=== PATIENT | female | born 1965 | race Caucasian/White ===

== ENCOUNTER 2017-03-31 00:07 | Emergency (ER) | payer MEDICAID ==
[~2017-03-31] VITALS: Ht 170.2 cm; Wt 68.0 kg
[2017-03-31 00:15] VITALS: BP 113/74
[2017-03-31] MEDS ORDERED: LEVOTHYROXINE25 MCG ORAL (00:15)
[2017-03-31] MEDS ORDERED: AUGMENTIN 875-1 EAC1 ORAL (02:57)
[2017-03-31] MEDS ORDERED: IBUPROFEN600 MG ORAL (02:57)
--- NOTE | 2017-03-31 02:58 | Emergency Room Report ---
History of Present Illness General Chief Complaint: Fever Source: Patient Present Illness HPI Is a 52-year-old female with no significant past medical history. She presents with chief complaint of sore throat and fever. Onset tonight. Pain is 10 out of 10. Worse with swallowing. No nausea no vomiting. No diarrhea. Has not anything for this. Denies any other complaint. No drooling. Allergies: Coded Allergies: No Known Allergies (Unverified , 03/31/17) Patient History Past Medical History: see triage record, old chart reviewed Past Surgical History: other Pertinent Family History: none Social History: Denies: drug use Now: No : 1 Para: 1 Immunizations: other Reviewed Nursing Documentation: PMH: Agreed, PSxH: Agreed Nursing Documentation-PMH Past Medical History: No Stated History Review of Systems Constitutional: Reports: fever Eye: Denies: eye pain, blurred vision ENT: Reports: throat pain, Denies: ear pain, nose congestion, throat swelling Respiratory: Denies: cough, shortness of breath Cardiovascular: Denies: chest pain, palpitations Gastrointestinal: Denies: abdominal pain, diarrhea, nausea, vomiting Musculoskeletal: Denies: back pain, joint pain Skin: Denies: rash Neurological: Denies: headache, numbness Endocrine: Denies: increased thirst, increased urine Hematologic/Lymphatic: Denies: easy bruising All Other Systems: negative except mentioned in HPI Physical Exam Vital Signs Date Time Temp Pulse Resp B/P (MAP) Pulse Ox O2 Delivery O2 Flow Rate FiO2 03/31/17 00:12 101.5 93 14 113/74 96 Room Air vitals with fever Sp02 EP Interpretation: reviewed, normal General Appearance: well appearing, no apparent distress, alert Head: normocephalic, atraumatic Eyes: bilateral eye PERRL, bilateral eye EOMI ENT: hearing grossly normal, tonsillar swelling, pharyngeal erythema, tonsillar exudate Neck: full range of motion, supple, no meningismus Respiratory: chest non-tender, lungs clear, normal breath sounds Cardiovascular #1: regular rate, rhythm, no murmur Gastrointestinal: normal bowel sounds, non tender, no mass, no organomegaly, no bruit, non-distended Musculoskeletal: back normal, gait/station normal, normal range of motion Psychiatric: mood/affect normal Skin: warm/dry Medical Decision Making Diagnostic Impression: Primary Impression: Acute tonsillitis Qualified Codes: J03.90 - Acute tonsillitis, unspecified ER Course Patient with fever and accident tonsillitis. Worrisome for strep. No evidence of sepsis, pneumonia, peritonsillar abscess, retropharyngeal abscess or Misael angina. He felt better now. We'll discharge him. Last Vital Signs Date Time Temp Pulse Resp B/P (MAP) Pulse Ox O2 Delivery O2 Flow Rate FiO2 03/31/17 00:15 101.5 85 14 113/74 96 Room Air Status: improved Disposition: HOME, SELF-CARE Condition: Stable Scripts Ibuprofen* (MOTRIN*) 600 Mg Tablet 600 MG ORAL Q8H Y for For Pain, #30 TAB 0 Refills Prov: RITA PARKER M.D. 03/31/17 Amoxicillin/Potassium Clav 875-125* (AUGMENTIN 875-125 TABLET*) 1 Each Tablet 1 TAB ORAL TWICE A DAY, #14 TAB Prov: RITA PARKER M.D. 03/31/17 Additional Instructions: Followup with your DrMann in 7 days. Increase fluid. Saltwater gargle. Return if worse. RITA PARKER M.D. Mar 31, 2017 02:58
[2017-03-31 03:10] VITALS: BP 113/74
[2017-04-02] MEDS ORDERED: IBUPROFEN600 MG ORAL (18:54)
[2017-04-02] MEDS ORDERED: AUGMENTIN 875-1 EAC1 ORAL (18:54)
== END 2017-03-31 03:10 | disposition home or self-care (01) ==
LOC: EMR 00:27
DX: J03.90 Acute tonsillitis, unspecified (principal)
CPT/HCPCS: 99284

== ENCOUNTER 2017-09-06 07:28 | Emergency (ER) | payer MEDICAID ==
[~2017-09-06] VITALS: Ht 172.7 cm; Wt 68.0 kg
[~2017-09-06 07:28] MED LIST: AUGMENTIN 875-1 EAC1 ORAL; IBUPROFEN600 MG ORAL; LEVOTHYROXINE25 MCG ORAL
[2017-09-06] MEDS ORDERED: NKM (07:44)
--- NOTE | 2017-09-06 08:38 | Emergency Room Report ---
History of Present Illness General Chief Complaint: Lower Extremity Injury Source: Patient Present Illness HPI Patient fell yesterday and twisted her ankle. She was helping a neighbor move and was using a hand jeramy. She's not sure how she fell but denies loss of consciousness. Ankle twisted and that was bruised swollen and painful. Pain rated 7/10, in ankle, min radiation up lower leg. No knee pain. Ambulatory but with pain. She also complains of pain in her heel. This has been for some time (weeks). She questions whether there is a callous there. Allergies: Coded Allergies: No Known Allergies (Unverified , 03/31/17) Patient History Past Medical History: see triage record Social History: Reports: smoking Social History Narrative at home Last Menstrual Period: menopause Reviewed Nursing Documentation: PMH: Agreed; PSxH: Agreed Nursing Documentation-PMH Past Medical History: No Stated History Review of Systems Constitutional: Denies: fever Respiratory: Denies: cough Cardiovascular: Denies: chest pain Musculoskeletal: Reports: see HPI Skin: Reports: see HPI Neurological: Reports: see HPI Hematologic/Lymphatic: Reports: see HPI Physical Exam Vital Signs Date Time Temp Pulse Resp B/P (MAP) Pulse Ox O2 Delivery O2 Flow Rate FiO2 09/06/17 07:40 97.7 81 16 127/81 97 Room Air 97.7 Sp02 EP Interpretation: reviewed, normal General Appearance: well appearing, no apparent distress, GCS 15 Head: normocephalic, atraumatic Eyes: bilateral eye PERRL, bilateral eye Scleral Injection ENT: hearing grossly normal, normal voice, moist mucus membranes Neck: full range of motion, supple Respiratory: lungs clear, no respiratory distress, speaking full sentences Cardiovascular #1: regular rate, rhythm Cardiovascular #2: 2+ radial (R), 2+ dorsalis pedis (R) Gastrointestinal: normal inspection Musculoskeletal: back normal, normal range of motion, swelling - Right ankle bilat with maleolus tendnerness. No 5th MT tenderness. Min swelling in front of heel cornified skin and bilat heel and mid heel pain Neurologic: alert, grossly normal Psychiatric: mood/affect normal Skin: other - Ecchymosis right ankle. Heel without callous or blister, no erythema Medical Decision Making Diagnostic Impression: Primary Impression: Ankle sprain Qualified Codes: S93.401A - Sprain of unspecified ligament of right ankle, initial encounter Additional Impressions: Plantar fasciitis of right foot Heel spur Qualified Codes: M77.31 - Calcaneal spur, right foot ER Course Patient presents with right ankle injury. Differential includes fracture, sprain and contusion. X-rays are indicated as well as analgesia. Also more chronic heel pain. No evidence of cellulitis or blister. Exam consistent with both plantar fasciitis and heel spur. No fx, + heel spur air splint applied - good position with improvement. She refuses crutches. Patient left prior to final eval by me. Patient eloped. Attempted to call = mailbox full - same for daughter's number. Other X-Ray Diagnostic Results Other X-Ray Diagnostic Results : X-Ray ordered: R ankle # of Views/Limited Vs Complete: 3 View Indication: Other Interpretation: no dislocation, no fractures, other - STS and heel spur Impression: Other Electronically Signed by: Electronically signed by Doe Phillips MD Last Vital Signs Date Time Temp Pulse Resp B/P (MAP) Pulse Ox O2 Delivery O2 Flow Rate FiO2 09/06/17 09:52 97.7 81 16 127/81 97 Room Air Status: improved Disposition: ELOPED Condition: Improved Scripts Acetaminophen (Tylenol) 325 Mg Tablet 650 MG ORAL Q6H PRN for Prn Pain/Headache/Temp > 101, #20 TAB 0 Refills Prov: Doe Phillips M.D. 09/06/17 Ibuprofen* (MOTRIN*) 600 Mg Tablet 600 MG ORAL Q6H PRN for For Pain, #20 TAB Prov: Doe Phillips M.D. 09/06/17 Doe Phillips M.D. Sep 06, 2017 08:37
[2017-09-06] MEDS ORDERED: IBUPROFEN600 MG ORAL (09:50)
[2017-09-06] MEDS ORDERED: TYLENOL325 MG ORAL (09:50)
[2017-09-06 09:52] VITALS: BP 127/81
--- NOTE | 2017-09-06 11:01 | Diagnostic Imaging Report ---
Indication: Pain right ankle ankle pain/trauma Comparison: None Findings: 3 views of the right ankle obtained. No acute fracture, malalignment, periostitis, or osteochondral defects are identified. Soft tissues are unremarkable. Plantar calcaneal spur noted. Impression: Negative examination
== END 2017-09-06 09:52 | disposition left against medical advice (07) ==
LOC: EMR 08:52
DX: S93.401A Sprain of unspecified ligament of right ankle, initial encounter (principal); M77.31 Calcaneal spur, right foot; M72.2 Plantar fascial fibromatosis; F17.200 Nicotine dependence, unspecified, uncomplicated; W18.30XA Fall on same level, unspecified, initial encounter; Y93.E6 Activity, residential relocation; Y92.9 Unspecified place or not applicable
CPT/HCPCS: 99284

== ENCOUNTER 2018-01-10 22:34 | Emergency (ER) | payer MEDICAID ==
[~2018-01-10] VITALS: Ht 172.7 cm; Wt 68.0 kg
[~2018-01-10 22:34] MED LIST changes: +NKM; +TYLENOL325 MG ORAL
--- NOTE | 2018-01-10 22:54 | Emergency Room Report ---
History of Present Illness General Chief Complaint: insect bite Source: Patient Present Illness HPI Patient presents with complaints of redness and itching to her left hand Reports that the problem started yesterday Has persisted today and felt that it somewhat worsened Denies any fevers or chills Denies any elbow pain denies any wrist pain Patient complains of itching at the site Mainly involving the dorsal part of the hand Allergies: Coded Allergies: No Known Allergies (Unverified , 03/31/17) Patient History Past Medical History: see triage record Pertinent Family History: none Reviewed Nursing Documentation: PMH: Agreed; PSxH: Agreed Review of Systems All Other Systems: negative except mentioned in HPI Physical Exam 99% on room air which is normal Sp02 EP Interpretation: reviewed, normal General Appearance: well appearing, no apparent distress Head: normocephalic, atraumatic Eyes: bilateral eye PERRL, bilateral eye EOMI ENT: hearing grossly normal, normal pharynx Neck: supple Respiratory: lungs clear, normal breath sounds Cardiovascular #1: regular rate, rhythm Gastrointestinal: non tender, soft Musculoskeletal: normal inspection Neurologic: alert, oriented x3 Skin: other - Some increased swelling and mild erythema to the dorsal part of the left hand, patient is able to make a fist and extend the fingers without deficit, no obvious areas of trauma possible area of insect bite on the dorsal part of the region between the thumb and index finger Lymphatic: no adenopathy Medical Decision Making Diagnostic Impression: Primary Impression: Insect bite Additional Impression: Cellulitis ER Course Given the exam and history there is some consistency with likely insect bite, there is some local reaction and likely early cellulitis patient placed on antibiotics and will have close outpatient follow-up Status: improved Disposition: HOME, SELF-CARE Condition: Improved Scripts Amoxicillin/Potassium Clav 875-125* (AUGMENTIN 875-125 TABLET*) 1 Each Tablet 1 TAB ORAL TWICE A DAY, #14 TAB Prov: Kevin Cruz DO 01/10/18 Prednisone* (PREDNISONE*) 20 Mg Tablet 20 MG ORAL DAILY, #7 TAB Prov: Kevin Cruz DO 01/10/18 Diphenhydramine Hcl* (BENADRYL*) 25 Mg Capsule 25 MG ORAL Q6H PRN for Itching for 5 Days, CAP Prov: Kevin Cruz DO 01/10/18 Additional Instructions: Patient is provided with the discharge instructions notified to follow up with primary doctor in the next 2-3 days otherwise return to the er with any worsening symptoms. Please note that this report is being documented using [employer] technology. This can lead to erroneous entry secondary to incorrect interpretation by the dictating instrument. Kevin Cruz DO Jan 10, 2018 22:54
[2018-01-10] MEDS ORDERED: Augmentin 875mg Tab ORAL ONE (23:00)
[2018-01-10 23:05] VITALS: BP 123/83
[2018-01-10] MEDS ORDERED: BENADRYL25 MG ORAL (23:06)
[2018-01-10] MEDS ORDERED: AUGMENTIN 875-1 EAC1 ORAL (23:06)
[2018-01-10] MEDS ORDERED: PREDNISONE20 MG ORAL (23:06)
[2018-01-10 23:09] VITALS: BP 123/83
== END 2018-01-10 23:30 | disposition home or self-care (01) ==
LOC: EMR 23:11
DX: S60.562A Insect bite (nonvenomous) of left hand, initial encounter (principal); L03.114 Cellulitis of left upper limb; W57.XXXA Bitten or stung by nonvenomous insect and other nonvenomous arthropods, initial encounter; Y92.9 Unspecified place or not applicable
CPT/HCPCS: 99283; J7512

== ENCOUNTER 2018-03-07 10:26 | Emergency (ER) | payer MEDICAID ==
[~2018-03-07] VITALS: Ht 170.2 cm; Wt 68.0 kg
[~2018-03-07 10:26] MED LIST changes: +BENADRYL25 MG ORAL; +PREDNISONE20 MG ORAL
--- NOTE | 2018-03-07 11:15 | NUR ---
ED Nurse Note: pt walked into ED c/o headache x2 days and nausea, pt states she gets migraine n[place]and every month. Pt AA&xo4, gcs=15, skin warm and dry, resp even and unlabored, -n/v/d, ambulates w/ steady gait. will cont monitor.
[2018-03-07] MEDS ORDERED: IMITREX50 MG ORAL (11:26)
[2018-03-07] MEDS ORDERED: SUMAtriptan 50mg tab ORAL ONE (11:30)
[2018-03-07 11:31] VITALS: BP 126/86
--- NOTE | 2018-03-07 11:37 | NUR ---
ED Nurse Note: pt discharge instruction provided w/ prescription, pt education done via discussion and handout, pt advised to follow up w/ pcp 2-3days, pt verbalized understanding and agrees with plan, pt wrist band removed, pt ambulatory w/ steady gait, vss.
[2018-03-07 11:39] VITALS: BP 130/89
--- NOTE | 2018-03-08 13:48 | Emergency Room Report ---
History of Present Illness General Chief Complaint: Headache Source: Patient Present Illness HPI Patient presents with what she complains of being migraine headaches Patient reports that she has had them several times in the past has not been seen or diagnosed officially by a neurologist The pain usually is on the left side of her head however today she was experiencing pain to the right side some blurring of the vision on the pain comes on Denies any focal weakness Denies any chest pain or shortness of breath she has some increased nausea with this denies any vomiting denies any abdominal pain Denies any neck pain or photophobia she had some minimal relief with Advil Denies any recent travel or trauma Allergies: Coded Allergies: No Known Allergies (Unverified , 03/31/17) Patient History Past Medical History: see triage record Pertinent Family History: none Last Menstrual Period: menopause Reviewed Nursing Documentation: PMH: Agreed; PSxH: Agreed Nursing Documentation-PMH Past Medical History: No History, Except For Review of Systems All Other Systems: negative except mentioned in HPI Physical Exam Vital Signs Date Time Temp Pulse Resp B/P (MAP) Pulse Ox O2 Delivery O2 Flow Rate FiO2 03/07/18 10:43 98.4 75 16 128/85 96 Room Air Sp02 EP Interpretation: reviewed, normal General Appearance: well appearing, no apparent distress Head: normocephalic, atraumatic Eyes: bilateral eye PERRL, bilateral eye EOMI ENT: hearing grossly normal, normal pharynx, TMs + canals normal, uvula midline Neck: full range of motion, supple, no meningismus, no bony tend Respiratory: lungs clear, normal breath sounds, no rhonchi, no respiratory distress, no retraction, no accessory muscle use Cardiovascular #1: normal peripheral pulses, regular rate, rhythm, no edema, no gallop, no JVD, no murmur Gastrointestinal: normal bowel sounds, non tender, soft, no mass, no organomegaly, non-distended, no guarding, no hernia, no pulsatile mass, no rebound Genitourinary: no CVA tenderness Musculoskeletal: normal inspection Neurologic: oriented x3, responsive, receptionist telephone operator III-XII nml as tested, motor strength/ tone normal, sensory intact Psychiatric: mood/affect normal Skin: normal color, no rash, warm/dry, palpation normal Lymphatic: normal inspection, no adenopathy Medical Decision Making Diagnostic Impression: Primary Impression: Headache ER Course Patient has a benign neurological exam multiple differentials including but not limited to intracranial neurological neurosurgical, infectious pathology were entertained Given the lack of any pathology on exam Patient reports that she has tried Imitrex in the past which worked well but does not have any at this time this was provided for the patient initially And she will have initial conservative outpatient trial Requiring close outpatient follow-up Last Vital Signs Date Time Temp Pulse Resp B/P (MAP) Pulse Ox O2 Delivery O2 Flow Rate FiO2 03/07/18 11:39 98.2 83 16 130/89 98 Room Air Status: improved Disposition: HOME, SELF-CARE Condition: Improved Scripts Sumatriptan Succinate* (IMITREX*) 50 Mg Tablet 50 MG ORAL DAILY PRN MIGRAINE, #10 TAB Prov: Kevin Cruz DO 03/07/18 Referrals: NON PHYSICIAN (PCP) Patient Instructions: General Headache Without Cause Additional Instructions: Patient is provided with the discharge instructions notified to follow up with primary doctor in the next 2-3 days otherwise return to the er with any worsening symptoms. Please note that this report is being documented using [employer] technology. This can lead to erroneous entry secondary to incorrect interpretation by the dictating instrument. Kevin Cruz DO Mar 08, 2018 13:48
== END 2018-03-07 11:40 | disposition home or self-care (01) ==
LOC: EMR 11:34
DX: R51 Headache (principal)
CPT/HCPCS: 99282

== ENCOUNTER 2018-08-11 00:03 | Emergency (ER) | payer MEDICAID ==
[~2018-08-11] VITALS: Ht 170.2 cm; Wt 70.3 kg
[~2018-08-11 00:03] MED LIST changes: +IMITREX50 MG ORAL
[2018-08-11 00:11] VITALS: BP 135/87
--- NOTE | 2018-08-11 00:12 | NUR ---
ED Nurse Note: PT CAME TO ED FROM HOME C/O OF BUG BITE ON RIGHT FOREARM, NOTABLE REDNESS AND SWELLING. DENIES PAIN, BUT STATES PERSISTEN ITCHING
[2018-08-11] MEDS ORDERED: BENADRYL25 MG ORAL (00:38)
[2018-08-11] MEDS ORDERED: CEPHALEXIN500 MG ORAL (00:38)
--- NOTE | 2018-08-11 00:39 | Emergency Room Report ---
History of Present Illness General Chief Complaint: Animal Bite Source: Patient Present Illness HPI Is a 53-year-old female with no past medical history. She presents with possible insect or bug bite. She says she felt something in leave of her sweater. She felt a prick in her right forearm. 30 minutes later she saw some swelling and itchiness. No fever chills but no nausea no vomiting. No shortness of breath. No other complaint. Allergies: Coded Allergies: No Known Allergies (Unverified , 03/31/17) Patient History Past Medical History: see triage record, old chart reviewed Past Surgical History: none Pertinent Family History: none Social History: Denies: smoking Last Menstrual Period: 2017 Now: No Immunizations: other Reviewed Nursing Documentation: PMH: Agreed; PSxH: Agreed Nursing Documentation-PMH Past Medical History: No Stated History Review of Systems Eye: Denies: eye pain, blurred vision ENT: Denies: ear pain, nose congestion, throat swelling Respiratory: Denies: cough, shortness of breath Cardiovascular: Denies: chest pain, palpitations Gastrointestinal: Denies: abdominal pain, diarrhea, nausea, vomiting Musculoskeletal: Denies: back pain, joint pain Skin: Denies: rash Neurological: Denies: headache, numbness Endocrine: Denies: increased thirst, increased urine Hematologic/Lymphatic: Denies: easy bruising All Other Systems: negative except mentioned in HPI Physical Exam Vital Signs Date Time Temp Pulse Resp B/P (MAP) Pulse Ox O2 Delivery O2 Flow Rate FiO2 08/11/18 00:06 98.2 90 16 135/87 (103) 95 Room Air Vitals unremarkable Sp02 EP Interpretation: reviewed, normal General Appearance: well appearing, no apparent distress, alert Head: normocephalic, atraumatic Eyes: bilateral eye PERRL, bilateral eye EOMI ENT: hearing grossly normal, normal pharynx Neck: full range of motion, supple, no meningismus Respiratory: chest non-tender, lungs clear, normal breath sounds Cardiovascular #1: regular rate, rhythm, no murmur Gastrointestinal: normal bowel sounds, non tender, no mass, no organomegaly, no bruit, non-distended Musculoskeletal: back normal, gait/station normal, normal range of motion, other - Right forearm: There is a 5 cm area of urticaria. There is 2 small pinpoint puncture hill. Psychiatric: mood/affect normal Skin: warm/dry Medical Decision Making Diagnostic Impression: Primary Impression: Insect bite Qualified Codes: S50.861A - Insect bite (nonvenomous) of right forearm, initial encounter; W57.XXXA - Bitten or stung by nonvenomous insect and other nonvenomous arthropods, initial encounter Additional Impression: Allergic reaction to insect bite ER Course Patient presents with a local reaction from insect bite/sting. No evidence of sepsis or cellulitis. No evidence of any abscess. Will discharge home. Last Vital Signs Date Time Temp Pulse Resp B/P (MAP) Pulse Ox O2 Delivery O2 Flow Rate FiO2 08/11/18 00:11 98.2 90 16 135/87 95 Room Air Status: improved Disposition: HOME, SELF-CARE Condition: Stable Scripts Cephalexin* (KEFLEX*) 500 Mg Capsule 500 MG ORAL TID, #21 CAP Prov: River Kwong MD 08/11/18 Diphenhydramine Hcl* (BENADRYL*) 25 Mg Capsule 50 MG ORAL Q6H PRN for Itching, #30 CAP Prov: River Kwong MD 08/11/18 Additional Instructions: Keep wound clean. Take Benadryl for itching. Take antibiotics if increasing redness or swelling. Follow-up with your doctor in 7 days. Return if worse. River Kwong MD Aug 11, 2018 00:39
[2018-08-11 00:42] VITALS: BP 131/84
--- NOTE | 2018-08-11 00:43 | NUR ---
ER DISCHARGE NOTE: Patient is cleared to be discharged per ERMD, pt is aox4, on room air, with stable vital signs. pt was given dc and prescription instructions, pt was able to verbalize understanding, pt id band removed. pt is able to ambulate with steady gait. pt took all belongings.
== END 2018-08-11 01:00 | disposition home or self-care (01) ==
LOC: EMR 00:55
DX: S50.861A Insect bite (nonvenomous) of right forearm, initial encounter (principal); W57.XXXA Bitten or stung by nonvenomous insect and other nonvenomous arthropods, initial encounter; T78.40XA Allergy, unspecified, initial encounter
CPT/HCPCS: 99282